=== PATIENT | male | born 1965 | race Caucasian/White ===

== ENCOUNTER 2024-03-31 11:45 | Emergency (ER) | payer MEDICARE, SELFPAY ==
[2024-03-31] VITALS (10 sets, daily range): BP systolic 122–140; BP diastolic 80–89; PULSE 54–58; RESP 17; TEMP 37.1; O2SAT 96–99; BMI 24.7
--- NOTE | 2024-03-31 11:49 | XRR_ITS ---
PROCEDURE INFORMATION: Exam: XR Chest Exam date and time: 03/31/2024 11:59 AM Age: 58 years old Clinical indication: Pain; Chest pressure; Prior surgery; Surgery date: 6+ months; Surgery type: C. Spine; Additional info: Weakness TECHNIQUE: Imaging protocol: Radiologic exam of the chest. Views: 1 view. COMPARISON: No relevant prior studies available. FINDINGS: Lungs: No focal consolidation. Several very small granulomatous calcifications are present. Pleural spaces: No significant pleural fluid. No pneumothorax detected. Heart/Mediastinum: Heart size within normal range. No pulmonary vascular congestion. Bones/joints: Prior lower cervical ACDF. XR/XR chest 1V portable [id number] IMPRESSION: No acute cardiopulmonary abnormality detected on AP portable chest radiograph.
--- NOTE | 2024-03-31 11:55 | CTR_ITS ---
PROCEDURE INFORMATION: Exam: CT Head Without Contrast Exam date and time: 03/31/2024 11:45 AM Age: 58 years old Clinical indication: Stroke-like symptoms; Altered mental status/memory loss; Additional info: Stroke symptoms. No. No specific neurologic signs or symptoms reported. TECHNIQUE: Imaging protocol: Computed tomography of the head without contrast. Radiation optimization: All CT scans at this facility use at least one of these dose optimization techniques: automated exposure control; mA and/or kV adjustment per patient size (includes targeted exams where dose is matched to clinical indication); or iterative reconstruction. Other technique: STROKE PROTOCOL was implemented. COMPARISON: No relevant prior studies available. RADIATION DOSE METRICS: Total DLP (mGy-cm): 1055.28 FINDINGS: Brain: No acute intracranial hemorrhage or mass effect. No subdural collections are seen. Cerebral ventricles: Size within normal range for age. No midline shift. Paranasal sinuses: Visualized portions of paranasal sinuses are well aerated. Mastoid air cells: Visualized portions of mastoid sinuses are not opacified. Bones: Unremarkable. No acute fracture. Soft tissues: Other than as stated above, no obvious acute abnormality. CT/CT head wo con* [id number] IMPRESSION: No acute intracranial hemorrhage or mass effect. ASSESSMENT: ASPECTS ([place] Stroke Program Early CT Score) is 10.
--- NOTE | 2024-03-31 11:57 | ECG_ITS ---
[facility] Test Date: 2024-03-31 Pat Name: Prince Akhtar Department: Room: Gender: Male [employer] Work[employer]: : 1965 Requested By: Kee Corley Order Number: [id number] Carlos MD: Jacques Hare M.D. Measurements Intervals [place] Rate: 47 P: -3 FL: 179 QRS: 16 QRSD: 106 T: 20 QT: 475 QTc: 421 Interpretive Statements SINUS BRADYCARDIA INCOMPLETE RIGHT BUNDLE BRANCH BLOCK [90+ ms QRS DURATION, TERMINAL R IN V1/V2, 40+ ms S IN I/aVL/V4/V5/V6] SEPTAL MYOCARDIAL INFARCTION , OF INDETERMINATE AGE [40+ ms Q WAVE IN V1/V2] No previous ECG available for comparison Electronically Signed On 03-31-2024 20:07:38 CDT by Jacques Hare M.D. [id number]
--- NOTE | 2024-03-31 12:05 | ED_ITS ---
HPI - Neuro Symptoms/Deficit 2 General: Chief Complaint: Neuro Symptoms/Deficit Stated Complaint: WEAKNESS Time Seen by Provider: 03/31/24 11:57 Mode of arrival: EMS Limitations: other (Dysarthria) History of Present Illness: Patient seen immediately on arrival. Patient reportedly had sudden onset of neurologic deficits at 10 AM today witnessed by family. There is a report that he had some sort of altered mental status yesterday and was found in his yard. He does not have any recollection of this. He returned to normal yesterday afternoon and throughout the night and this morning. Currently, the patient has an NIH of 11 on arrival, on my initial exam. He has ataxia, numbness, and drift in his left arm and left leg. He has a right facial droop. He has significant dysarthria making it very difficult to understand him. I have screened the patient for contraindications to tenecteplase. He does not report any. CT scan of the head was negative. The patient's med list was given to us containing 4 medications, none of which are anticoagulants. The patient denies any recent trauma, surgeries, or any known cancers, bleeding disorders, history of major bleeding. The only unknown so far is what happened yesterday. Since the CT scan of the head is negative today and the patient has significant symptoms, I counseled him about the risk benefits alternatives of using tenecteplase. The patient would like to proceed as he has significant dysarthria and symptoms on the left side of his body and right side of his face. A code stroke was activated upon arrival and I am awaiting consultation with the neurologist. Patient does report he is a smoker and uses alcohol every few days. His blood pressure is not significantly elevated. His glucose is normal. Review of Systems 2 General: Reports: Other (See HPI) NIH stroke score 2 NIHSS: Level Of Consciousness - 1a: 0 Level Of Consciousness Questions - 1b: Both Correct Level Of Consciousness Commands - 1c: Both Correct Best Gaze - 2: Normal Facial Palsy - 4: Complete Paralysis Motor Arm Right - 5: No Drift Motor Arm Left - 5: Effort Against [place] Motor Leg Right - 6: N o Drift Motor Leg Left - 6: Drift Sensory - 8: Mild To Moderate Loss B est Language - 9: No Aphasia Dysarthia - 10: Severe Dysarthia Extinction And Inattention - 11: 0 Physical Exam 2 Narrative: EXAM NARRATIVE: Alert, significant dysarthria. No apparent aphasia. Right facial paralysis with only minor movements. Left arm drift, ataxia, numbness. Left leg drift, ataxia, numbness. Right side arm and leg normal. No apparent visual deficits. Tracking is normal. No signs of any trauma on the head neck spine abdomen chest or extremities. Const: COMMON NORMALS: alert and well nourished EXAM LIMITATIONS: no altered mental status HENMT: COMMON NORMALS: normocephalic, atraumatic and external ears normal H EAD & SCALP: normocephalic and atraumatic EXTERNAL EAR: Yes external ears normal MOUTH: no muffled voice Eye: COMMON NORMALS: EOMs intact bilaterally, conjunctivae normal and no scleral icterus CONJUNCTIVA: Yes conjunctivae normal Neck/C-Spine: COMMON NORMALS: no JVD GENERAL: Yes normal visual inspection and Yes trachea midline Resp: COMMON NORMALS: normal respiratory effort, No use of accessory muscles and clear to auscultation bilaterally AUSCULTATION: clear to auscultation bilaterally Cardio: COMMON NORMALS: no JVD and regular rhythm RHYTHM: regular rhythm GI: COMMON NORMALS: Soft to palpation and non-tender PALPATION: Yes Soft to palpation and No Guarding due to palpation present (GI) Extremity: COMMON NORMALS: normal to inspection Neuro: SENSORIUM/ORIENTATION: Yes alert Psych: COMMON NORMALS: mental status grossly normal and cooperative Skin: COMMON NORMALS: no rashes or lesions noted, turgor normal and no jaundice GENERAL SKIN EXAM: no rashes or lesions noted and turgor normal Course 2 Reevaluation(s): Reevaluation #1: Repeat evaluation just before tenecteplase unchanged. Vital Signs: Vital signs: Vital Signs Temperature 98.8 F 03/31/24 11:53 Pulse Rate 54 L 03/31/24 11:53 Respiratory Rate 17 03/31/24 11:53 Blood Pressure 133/88 03/31/24 11:53 Pulse Oximetry 99 03/31/24 11:53 MDM - Neuro Symptoms/Deficit Medical Decision Making Patient appears to have an acute stroke. NIH of 11. No contraindications to tenecteplase known by the patient or parent of this. Not taking blood thinners. Blood pressure within specified range. Glucose normal. Tenecteplase has been ordered after CT scan of the head was read by the radiologist as negative. The neurology team has been consulted and I am awaiting their input as well. Patient will need to be admitted to the neuro ICU. 1230 pm Discuss[address] case with Dr. James, Stroke Neuro, who agrees with tenecteplase. He agrees to do follow-up CTA head and neck. He will follow-up on these as soon as they are done. [facility]ed with [facility]. Patient accepted by neurologist Dr. Nixon henderson at 1227. Lab Data 03/31/24 12:02 03/31/24 12:02 Radiology Impressions Chest X-Ray 03/31/24 11:49 IMPRESSION: No acute cardiopulmonary abnormality detected on AP portable chest radiograph. Head CT 03/31/24 11:55 IMPRESSION: No acute intracranial hemorrhage or mass effect. ASSESSMENT: ASPECTS ([place] Stroke Program Early CT Score) is 10. Laboratory Results WBC 6.79 10^3/uL (3.29-11.43) 03/31/24 12:02 RBC 5.11 10^6/uL (3.85-5.65) 03/31/24 12:02 Hgb 15.00 g/dL (11.27-16.99) 03/31/24 12:02 Hct 45.5 % (37-53) 03/31/24 12:02 MCV 89.0 fl (82-101) 03/31/24 12:02 MCH 29.4 pg (27-33) 03/31/24 12:02 MCHC 33.0 g/dL (30-55) 03/31/24 12:02 RDW 13.1 % (12.1-15.1) 03/31/24 12:02 Plt Count 282 10^3/cmm (157-399) 03/31/24 12:02 MPV 9.7 fL (7.4-10.4) 03/31/24 12:02 Neut % (Auto) 65.9 % 03/31/24 12:02 Lymph % (Auto) 21.6 % 03/31/24 12:02 [place] % (Auto) 6.8 % 03/31/24 12:02 Eos % (Auto) 4.6 % 03/31/24 12:02 Baso % (Auto) 0.7 % 03/31/24 12:02 Neut # (Auto) 4.47 10^3/uL (1.8-7.7) 03/31/24 12:02 Lymph # (Auto) 1.5 10^3/uL (0.8-4.8) 03/31/24 12:02 [place] # (Auto) 0.5 10^3/uL (0.2-0.9) 03/31/24 12:02 Eos # (Auto) 0.3 10^3/uL (0.0-0.8) 03/31/24 12:02 Baso # (Auto) 0.1 10^3/uL (0.0-0.1) 03/31/24 12:02 Nucleated RBC % (auto) 0 % 03/31/24 12:02 Nucleated RBCs # 0.0 /100WBC 03/31/24 12:02 PT 13.70 SECONDS (12.1-14.9) 03/31/24 12:02 INR 1.01 (0.8-1.2) 03/31/24 12:02 APTT 30.5 SECONDS (23.9-36.7) 03/31/24 12:02 Sodium 138 mmol/L (136-145) 03/31/24 12:02 Potassium 3.8 mmol/L (3.5-5.1) 03/31/24 12:02 Chloride 104 mmol/L (98-107) 03/31/24 12:02 Anion Gap 16.8 (5-19) 03/31/24 12:02 BUN 18 mg/dL (6-20) 03/31/24 12:02 Creatinine 0.8 mg/dL (0.7-1.2) 03/31/24 12:02 GFR Calculation 99.6 mL/min (90-130) 03/31/24 12:02 Glucose 102 mg/dL (65-115) 03/31/24 12:02 Calculated Osmolality 288 mOsm/kg (285-295) 03/31/24 12:02 Calcium 9.7 mg/dL (8.5-10.5) 03/31/24 12:02 Magnesium 2.0 mg/dL (1.7-2.3) 03/31/24 12:02 Total Bilirubin 0.4 mg/dL (0.15-1.2) 03/31/24 12:02 AST 16 U/L (0-40) 03/31/24 12:02 ALT 17 U/L (0-41) 03/31/24 12:02 Alkaline Phosphatase 67 U/L (40-130) 03/31/24 12:02 Total Protein 7.4 g/dL (6.6-8.7) 03/31/24 12:02 Albumin 4.5 g/dL (3.5-5.2) 03/31/24 12:02 Globulin 2.9 g/dL (1.3-4.6) 03/31/24 12:02 TSH 0.49 uIU/mL (0.27-4.20) 03/31/24 12:02 All radiology interpretation(s) finalized by discharge ED provider radiology interpretation(s): Chest x-ray 1 view from the radiologist reveals no acute cardiopulmonary abnormalities, some granulomatous disease noted. EKG Data EKG 1: Interpretation: Sinus bradycardia, rate 47, normal axis, incomplete right bundle branch block with QRS of 106, no concerning ST segment elevations or depressions. Critical Care Time 2 Critical Care Time: Critical Care Time: Yes Total Critical Care Time: 45 Attestation: Critical care included rapid identification and assessment of neurologic symptoms and decision to treat for acute cerebrovascular accident as well as consultation with stroke neurologist, transfer center, nursing staff, and repeat assessments of the patient. It also included complex decision making regarding risk benefits and alternatives of thrombolytics. Discharge Plan Discharge Patient Disposition: Xfer Short-Term Hosp Clinical Impression: Cerebrovascular accident Qualifiers: CVA mechanism: thrombosis Laterality of affected vessel: unspecified Condition: Serious Discharge Orders: Transfer Out of Facility (Order); Ordered 03/31/24 Ordered By: Kee Corley Coding Level of Care Code ED [employer] Worker for Divya Clements
[2024-03-31 12:07] LABS: Basophils # 0.1 10^3/uL (0.0-0.1); Basophils % 0.7 %; Eosinophils # 0.3 10^3/uL (0.0-0.8); Eosinophils % 4.6 %; Hematocrit 45.5 % (37-53); Lymphocytes # 1.5 10^3/uL (0.8-4.8); Lymphocytes % 21.6 %; Mean Corpuscular Hemoglobin 29.4 pg (27-33); Mean Platelet Volume 9.7 fL (7.4-10.4); Monocytes # 0.5 10^3/uL (0.2-0.9); Monocytes % 6.8 %; Neutrophils # 4.47 10^3/uL (1.8-7.7); Neutrophils % 65.9 %; Nucleated Red Blood Cells % 0 %; Platelet Count 282 10^3/cmm (157-399); Red Blood Count 5.11 10^6/uL (3.85-5.65); Red Cell Distribution Width 13.1 % (12.1-15.1); White Blood Count 6.79 10^3/uL (3.29-11.43)
[2024-03-31 12:19] LABS: INR 1.01 (0.8-1.2)
[2024-03-31 12:20] LABS: Partial Thromboplastin Time 30.5 SECONDS (23.9-36.7)
[2024-03-31] MEDS: tenecteplase 50mg Kit (STROKE) 18 MG IVP (12:32)
--- NOTE | 2024-03-31 12:33 | CTR_ITS ---
PROCEDURE INFORMATION: Exam: CTA Head With Contrast, Arteriography Exam date and time: 03/31/2024 12:44 PM Age: 58 years old Clinical indication: Stroke-like symptoms; Altered mental status/memory loss; Additional info: CVA TECHNIQUE: Imaging protocol: Computed tomographic angiography of the head with contrast. Exam focused on the arteries. 3D rendering (Not supervised by radiologist): MIP and/or 3D reconstructed images were created by the technologist. Radiation optimization: All CT scans at this facility use at least one of these dose optimization techniques: automated exposure control; mA and/or kV adjustment per patient size (includes targeted exams where dose is matched to clinical indication); or iterative reconstruction. Contrast material: OMNIPAQUE 350; Contrast volume: 100 ml; Contrast route: INTRAVENOUS (IV); COMPARISON: CT head wo con* [id number] 03/31/2024 11:45 AM RADIATION DOSE METRICS: Total DLP (mGy-cm): 476.43 FINDINGS: Internal carotid: Intracranial segments of bilateral internal carotid arteries are patent without flow limiting stenosis. Anterior cerebral: Proximal anterior cerebral arteries bilaterally are patent without evidence of flow-limiting stenosis. Middle cerebral: Bilateral proximal middle cerebral arteries are patent without flow-limiting stenosis or occlusion. There is grossly symmetric appearance of branch vessels within the sylvian fissures. Posterior cerebral: Bilateral proximal posterior cerebral arteries are patent without flow-limiting stenosis or occlusion. Left posterior cerebral artery arises from the left ICA. P1 segment arising from the basilar artery may be developmentally absent.. Vertebrobasilar: Basilar artery is patent without flow-limiting stenosis. Intracranial segments of both vertebral arteries are patent without flow-limiting stenosis. Venous sinuses: Major dural venous sinuses are patent without evidence of thrombus. PROCEDURE INFORMATION: Exam: CTA Neck With Contrast Exam date and time: 03/31/2024 12:44 PM Age: 58 years old Clinical indication: Stroke-like symptoms; Altered mental status/memory loss; Additional info: CVA TECHNIQUE: Imaging protocol: Computed tomographic angiography of the neck with contrast. Exam focused on the cervical segments of the vasculature. 3D rendering (Not supervised by radiologist): MIP and/or 3D reconstructed images were created by the technologist. Radiation optimization: All CT scans at this facility use at least one of these dose optimization techniques: automated exposure control; mA and/or kV adjustment per patient size (includes targeted exams where dose is matched to clinical indication); or iterative reconstruction. Contrast material: OMNIPAQUE 350; Contrast volume: 100 ml; Contrast route: INTRAVENOUS (IV); COMPARISON: CT head wo con* [id number] 03/31/2024 11:45 AM RADIATION DOSE METRICS: Total DLP (mGy-cm): 476.43 FINDINGS: Aortic arch: No significant stenosis of the great vessels at their origins from the aortic arch. Right carotid: Right common, internal, and external carotid arteries in the neck show no flow-limiting stenosis or occlusion or evidence of dissection. Minimal atherosclerosis at the bifurcation. Left carotid: Left common, internal, and external carotid arteries in the neck are patent without flow-limiting stenosis or evidence of dissection. Mild atherosclerosis at the bifurcation. Left vertebral: Left vertebral artery is patent without flow-limiting stenosis or dissection. Right vertebral: Right vertebral artery is patent without evidence of flow-limiting stenosis or dissection. Soft tissues: No acute abnormality of the neck soft tissues is seen. Small opacities are seen in both upper lobes (series 5, image 7), nonspecific. Small granulomatous calcifications are also noted. Bones: Chronic cervical degenerative disc disease and facet DJD are present. Prior ACDF C5-C7. CT/CT angio headneck* [id number] IMPRESSION: CTA head demonstrates no intracranial large vessel occlusion or flow-limiting stenosis. IMPRESSION: 1. CTA Neck shows no occlusion or severe stenosis of the extracranial cerebrovascular circulation. 2. Small upper lobe pulmonary opacities, possibly related to prior granulomatous disease but appearance is nonspecific. For patients at low risk (minimal or absent history of smoking and of other known risk factors), recommend CT Chest at 3-6 months, then consider CT Chest at 18-24 months. For patients at high risk (history of smoking or of other known risk factors), recommend CT Chest at 3-6 months, then CT Chest at 18-24 months. (Reference: Glenna) REFERENCES: 1. Glenna Reyna et al. Guidelines for Management of Incidental Pulmonary Nodules Detected on CT Images: From the Fleischner Society 2017. Radiology. 2. NASCET CRITERIA. The degree of stenosis in the cervical segment of the internal carotid artery is based on NASCET criteria. Normal is no stenosis. Mild is less than 50% stenosis. Moderate is 50-69% stenosis. Severe is 70% to 99% stenosis. Total occlusion is no detectable patent lumen.
[2024-03-31 12:34] LABS: Alanine Aminotransferase 17 U/L (0-41); Albumin Level 4.5 g/dL (3.5-5.2); Alkaline Phosphatase 67 U/L (40-130); Anion Gap 16.8 (5-19); Aspartate Amino Transferase 16 U/L (0-40); Blood Urea Nitrogen 18 mg/dL (6-20); Calcium 9.7 mg/dL (8.5-10.5); Carbon Dioxide 21 mmol/L (22-29); Chloride 104 mmol/L (98-107); Creatinine Clr Calc Pharmacy 101.7534; Globulin 2.9 g/dL (1.3-4.6); Glomerular Filtration Rate 99.6 mL/min (90-130); Glucose 102 mg/dL (65-115); Osmolality Calculated 288 mOsm/kg (285-295); Potassium 3.8 mmol/L (3.5-5.1); Sodium 138 mmol/L (136-145); Thyroid Stimulating Hormone 0.49 uIU/mL (0.27-4.20); Total Bilirubin 0.4 mg/dL (0.15-1.2); Total Protein 7.4 g/dL (6.6-8.7)
[2024-03-31] MEDS: aspirin 325 mg Tablet PO (12:35)
[2024-03-31] MEDS: iohexol 350 mg/mL 500 mL Btl (per mL) IV (12:46)
== END 2024-03-31 13:32 | disposition short-term general hospital (02) ==
PROVIDERS: Emergency Medicine; Emergency Provider Emergency Medicine
DX: I63.30 Cerebral infarction due to thrombosis of unspecified cerebral artery (principal); R00.1 Bradycardia, unspecified; I45.19 Other right bundle-branch block
CPT/HCPCS: 36415; 70450; 70496; 70498; 71045; 80053; 83735; 84443; 85025; 85610; 85730; 93005; 99291; J3101; Q9967